=== PATIENT | female | born 1995 | race Caucasian/White ===

== ENCOUNTER 2017-06-19 18:23 | Emergency (ER) | payer BC ==
--- NOTE | 2017-06-19 18:46 | Emergency Department Record ---
History of Present Illness - General Chief Complaint: Ankle/Foot Injury Stated Complaint: RT ANKLE PAIN/SWELLING Time Seen by Provider: 06/19/17 18:41 Source: Patient Mode of Arrival: Wheelchair Limitations: No limitations - History of Present Illness Initial Comments: 21 yo female presents to ED for evaluation of an injury to the right foot and ankle that occurred just prior to arrival. Patient reports that she was jumping when the injury occurred. Patient reports taking ibuprofen and applying ice [employer]. Patient denies health problems at her baseline. MD Complaint: Ankle injury, Foot injury Onset/Timin -: Hour(s) Type of Injury: Blunt Place: Other Severity: Moderate Severity scale (1-10): 9 Worsens With: Movement Associated Symptoms: Snap/pop sensation, Swelling - Related Data Allergies Allergy/AdvReac Type Severity Reaction Status Date / Time No Known Drug Allergies Allergy Verified 06/19/17 18:38 Travel Screening - Travel/Exposure Within Last 30 Days Have you traveled within the last 30 days?: No - Travel/Exposure Within Last Year Have you traveled outside the [place] in the last year?: No - Additonal Travel Details Have you been exposed to anyone with a communicable illness?: No - Travel Symptoms Symptom Screening: None Review of Systems Constitutional: Denies: Chills, Fever, Malaise, Night sweats Eyes: Denies: Eye discharge, Eye pain ENT: Denies: Congestion, Ear pain, Epistaxis Respiratory: Denies: Cough, Dyspnea Cardiovascular: Denies: Chest pain, Dyspnea on exertion Endocrine: Denies: Fatigue, Heat or cold intolerance Gastrointestinal: Denies: Abdominal pain, Nausea, Vomiting Genitourinary: Denies: Incontinence, Retention Musculoskeletal: Reports: Arthralgia, Joint swelling. Denies: Back pain, Gout Skin: Denies: Bruising, Change in color Neurological: Denies: Abnormal gait, Confusion, Headache Psychiatric: Denies: Anxiety Hematological/Lymphatic: Denies: Anemia, Blood Clots Past Medical History - SOCIAL HISTORY Smoking Status: Never smoker Alcohol Use: None Drug Use: None - RESPIRATORY Hx Respiratory Disorders: Yes Hx Asthma: Yes - CARDIOVASCULAR Hx Cardio Disorders: No - NEURO Hx Neuro Disorders: Yes - GI Hx GI Disorders: Yes Comment:: ovarian cyst - Hx Genitourinary Disorders: No - ENDOCRINE Hx Endocrine Disorders: Yes Hx Diabetes: No Hx Thyroid Disease: Yes - MUSCULOSKELETAL Hx Musculoskeletal Disorders: No - PSYCH Hx Psych Problems: No - HEMATOLOGY/ONCOLOGY Hx Hematology/Oncology Disorders: No Family Medical History Any Significant Family History?: No Physical Exam - General General Appearance: Alert, Oriented x3, Cooperative, Mild distress Limitations: No limitations - Head Head exam: Atraumatic, Normocephalic, Normal inspection Head exam detail: negative: Abrasion, Contusion, Ochoa's sign, General tenderness, Hematoma, Laceration - Eye Eye exam: Normal appearance. negative: Conjunctival injection, Periorbital swelling, Periorbital tenderness, Scleral icterus - ENT Ear exam: negative: Auricular hematoma, Auricular trauma Nasal Exam: negative: Active bleeding, Discharge, Dried blood Mouth exam: negative: Drooling, Laceration, Tongue elevation - Neck Neck exam: Normal inspection. negative: Meningismus, Tenderness - Respiratory Respiratory exam: Normal lung sounds bilaterally. negative: Respiratory distress, Rhonchi, Stridor, Wheezes - Cardiovascular Cardiovascular Exam: Regular rate, Normal rhythm, Normal heart sounds Peripheral Pulses: 3+: Dorsalis Pedis (R) - GI/Abdominal GI/Abdominal exam: Soft. negative: Rebound, Rigid, Tenderness - Rectal Rectal exam: Deferred - exam: Deferred - Extremities Extremities exam: Tenderness, Other (TTP over the ankle and mid-foot dorsally, minimal STS present, no pain on examination of the calf/achilles, proximal fibula). negative: Calf tenderness, Pedal edema - Back Back exam: Denies: CVA tenderness (R), CVA tenderness (L) - Neurological Neurological exam: Alert, Normal gait, Oriented X3 - Psychiatric Psychiatric exam: Normal affect, Normal mood - Skin Skin exam: Normal color. negative: Abrasion Type of lesion: negative: abrasion Course Vital Signs 06/19/17 18:27 Temperature 98.2 F Pulse Rate 109 H Respiratory 18 Rate Blood Pressure 135/83 Pulse Ox 100 - Reevaluation(s) Reevaluation #1: 06/19/17 20:09 Right foot: No acute process (prelim ED read) Right ankle: No acute process (prelim ED read) Patient was updated on all results, will place in air splint with directions for symptomatic care and follow-up with her PCP in 3-5 days as directed. Disposition Disposition: Discharge Clinical Impression: Foot contusion Qualifiers: Encounter type: initial encounter Laterality: right Qualified Code(s): S90.31XA - Contusion of right foot, initial encounter Disposition: Home, Self-Care Condition: (2) Stable Instructions: Ankle Sprain (ED) Additional Instructions: Return to ED if your symptoms worsen or if you have any concerns. Air splint as directed. Ibuprofen, ice as needed. Follow-up with your family doctor in 3-5 days as directed. Forms: Patient Portal Access Time of Disposition: 20:10 Quality - Quality Measures Quality Measures: N/A - Blood Pressure Screening Does Patient Have Any of the Following: No Blood Pressure Classification: Normal BP Reading Systolic Measurement: 115 Diastolic Measurement: 66 Screening for High Blood Pressure: < Normal BP, F/U Not Required > [[id number]]
--- NOTE | 2017-06-20 07:57 | RADIOLOGY REPORT ---
EXAM: RIGHT ANKLE HISTORY: RIGHT ANKLE INJURY WITH PAIN. TECHNIQUE: Three views of the right ankle were obtained. Comparison: None. Encounter: Initial. FINDINGS: The right ankle appears intact with no definite fracture or dislocation seen. No prominent focal soft tissue swelling seen although there is probably some mild soft tissue swelling laterally and anteriorly. IMPRESSION: MILD SOFT TISSUE SWELLING. NO DEFINITE FRACTURE OF THE RIGHT ANKLE IDENTIFIED. JOB NUMBER: [id number] MTDD
--- NOTE | 2017-06-20 07:59 | RADIOLOGY REPORT ---
EXAM: RIGHT FOOT HISTORY: RIGHT FOOT INJURY WITH PAIN. TECHNIQUE: Three views of the right foot were obtained. Comparison: No prior right foot series. Encounter: Initial. FINDINGS: Minor degenerative change at the first MTP joint. No definite fracture or dislocation of the right foot identified. No prominent focal soft tissue swelling is seen. IMPRESSION: 1. MINOR DEGENERATIVE CHANGE AT THE FIRST MTP JOINT. 2. NO DEFINITE FRACTURE OF THE RIGHT FOOT IDENTIFIED. JOB NUMBER: [id number] MTDD
== END 2017-06-19 20:23 | disposition home or self-care (01) ==
LOC: ER 18:23
DX: S90.31XA Contusion of right foot, initial encounter (principal); M25.571 Pain in right ankle and joints of right foot; W22.8XXA Striking against or struck by other objects, initial encounter; Y93.44 Activity, trampolining
CPT/HCPCS: 99283